=== PATIENT | female | born 1955 | race Caucasian/White ===

== ENCOUNTER 2023-09-03 08:59 | Emergency (ER) | payer MEDICARE, SELFPAY ==
--- NOTE | ~2023-09-03 | XR_ITS ---
XR humerus RT 09/03/2023 10:18 Indication: Right arm pain Procedure: 2 views right humerus Comparison: No prior studies for comparison. Findings: There is a healed right midshaft fracture of the humerus. There is an intramedullary julieta in the humerus with a single proximal and 2 distal interlocking screws. No acute fracture. Impression: 1: No acute fracture. Reviewed, dictated and finalized at location B. Impression: 1: No acute fracture.
[2023-09-03 09:06] VITALS: BP 145/76; PULSE 78; RESP 14; TEMP 36.8; O2SAT 99
--- NOTE | 2023-09-03 13:06 | ED_ITS ---
HPI - Extremity Injury (Upper) General Chief Complaint: Extremity Injury, Upper Stated Complaint: jason friday Time Seen by Provider: 09/03/23 13:06 Source: patient Mode of arrival: ambulatory Limitations: no limitations History of Present Illness HPI narrative: This is a 67-year-old female who presents to the ED with chief complaint of right upper arm injury that occurred 3 days ago. Patient states that she tr ipped on a concrete curb and fell down directly onto the right arm. 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 She reports bruising to the medial biceps area. Denies numbness, weakness or any further sites of pain or injury. Review of Systems Review of Systems: All systems as dictated in HPI Exam Narrative: GENERAL: Well-appearing, well-nourished, and in no acute distress. MSK: R UE: Mild ecchymosis to the medial biceps distally. Full strength and sensation distally. Cap refill intact distally. Mild tenderness to the right humerus but no other site of tenderness. Full range of motion of the right shoulder and right elbow. LUE: Benign SKIN: Warm, dry, no rash. Bruising present NEURO: Alert and oriented x3. No focal deficits. PSYCH: Normal mood and affect. Course Vital Signs Vital signs: Vital Signs Temperature 98.2 F 09/03/23 09:06 Pulse Rate 78 09/03/23 09:06 Respiratory Rate 14 09/03/23 09:06 Blood Pressure 145/76 H 09/03/23 09:06 Pulse Oximetry 99 09/03/23 09:06 Temperature 98.2 F 09/03/23 09:06 Pulse Rate 78 09/03/23 09:06 Respiratory Rate 14 09/03/23 09:06 Blood Pressure 145/76 H 09/03/23 09:06 Pulse Oximetry 99 09/03/23 09:06 MDM - Extremity Injury (Upper) MDM Narrative Medical decision making narrative: This is a 67-year-old female who presents to the ED with chief complaint of right arm pain following fall that occurred 3 days ago. 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 Vitals are normal. Exam shows some mild ecchymosis but no significant deformity or loss of range of motion. X-rays of the right humerus are negative for any acute findings. Hardware intact. Patient was given arm sling for comfort Pt will be discharged in stable condition. Return precautions given and supportive measures discussed. Pt is understanding and agreeable with plan for discharge and follow-up with PCP. Discharge Plan Discharge Clinical Impression: Contusion of right upper arm Patient Disposition: Home, Self-Care Condition: Stable Instructions: Antibiotic Form, How to Use a Sling (ED) Additional Instructions: exam and imaging reassuring. take your normal pain medicaitons. Follow up with PCP. Arm sling for comfort If you have any new or worsening symptoms please return to the ER for further evaluation. Follow-up/Referrals: PHYSICIAN NOT ON STAFF,NONSTAFF [Primary Care Provider] - Time of Disposition: 13:09
== END 2023-09-03 13:36 | disposition home or self-care (01) ==
LOC: ANHED 13:23
PROVIDERS: Emergency Provider Physician Assistant
DX: S40.021A Contusion of right upper arm, initial encounter (principal); W10.1XXA Fall (on)(from) sidewalk curb, initial encounter
CPT/HCPCS: 73060; 99283; A4565